=== PATIENT | male | born 1955 | race Caucasian/White ===

== ENCOUNTER 2018-04-28 01:31 | Emergency (ER) | payer MEDICAID ==
[2018-04-28] MEDS: HYDROCODONE/APAP (10/325) TAB PO (02:15)
[2018-04-28] MEDS: ONDANSETRON (ODT) 4 MG TAB ODT (02:15)
== END 2018-04-28 03:13 | disposition home or self-care (01) ==
LOC: E/R 01:31
DX: S90.211A Contusion of right great toe with damage to nail, initial encounter (principal); W23.0XXA Caught, crushed, jammed, or pinched between moving objects, initial encounter; Y92.9 Unspecified place or not applicable; Z79.82 Long term (current) use of aspirin; Z87.891 Personal history of nicotine dependence
CPT/HCPCS: 73630; 99283-25